=== PATIENT | female | born 1965 | race Caucasian/White ===

== ENCOUNTER 2018-01-02 07:04 | Emergency (ER) | payer BC ==
--- NOTE | 2018-01-02 07:21 | UC ---
Respiratory Complaint HPI - HPI Summary HPI Summary: 52 year old female with cough. Having increased cough and some wheeze. Has asthma. last exac was 4 years ago. no fever today. coughing all night. no sleep. fatigue present. no SOB. No CP. has some rib pain from coughing when it is aggressive. trying to be better about asthma meds like symbicort but previously not using routinely. no myalgias. kids at school have been sick - History of Current Complaint Stated Complaint: COUGH Time Seen by Provider: 01/02/18 07:19 Hx Obtained From: Patient Hx Last Menstrual Period: 2013 ?: No Onset/Duration: Gradual Onset Timing: Constant Severity Currently: Moderate Character: Cough: Nonproductive Alleviating Factors: Nothing Associated Signs And Symptoms: Positive: Wheezing, Nasal Congestion, Sinus Discomfort - Allergies/Home Medications Allergies/Adverse Reactions: Allergies Allergy/AdvReac Type Severity Reaction Status Date / Time MS Latex [Latex] Allergy Severe Rash Verified 01/02/18 07:13 ENVIROMENTAL Allergy Unknown Uncoded 01/02/18 07:13 Reaction Details Home Medications: Home Medications Ibuprofen TAB* [Motrin TAB* 800 MG] 400 mg PO TID PRN 01/02/18 [History Confirmed 01/02/18] Ms [place] Albuterol 1 dose INH ONCE PRN 01/02/18 [History Confirmed 01/02/18] PMH/Surg Hx/FS Hx/Imm Hx Previously Healthy: Yes - Surgical History Surgical History: None - Family History Known Family History: Positive: Diabetes - father Negative: Cardiac Disease, Hypertension - Social History Occupation: Employed Full-time - teacher Lives: With Family Alcohol Use: Rare Substance Use Type: None Smoking Status (MU): Former Smoker Type: Cigarettes When Did the Patient Quit Smoking/Using Tobacco: 30 YEARS AGO Review of Systems Constitutional: Fever, Fatigue ENT: Nasal Discharge, Sinus Congestion Respiratory: Cough Neurological: Headache Is Patient Immunocompromised?: No All Other Systems Reviewed And Are Negative: Yes Physical Exam Triage Information Reviewed: Yes Appearance: Well-Appearing, No Pain Distress, Well-Nourished Vital Signs Reviewed: Yes Eye Exam: Normal ENT Exam: Normal ENT: Positive: Pharynx normal, Nasal drainage, TM dull Dental Exam: Normal Neck exam: Normal Neck: Positive: 1 Respiratory Exam: Normal Respiratory: Positive: Chest non-tender, Lungs clear, Normal breath sounds, No respiratory distress, No accessory muscle use Cardiovascular Exam: Normal Musculoskeletal Exam: Normal Neurological Exam: Normal Psychological Exam: Normal Skin Exam: Normal Respiratory Course/Dx - Course Course Of Treatment: treat as URI with mild worsened asthma sx. she already has at home albuterol inhaler and neb and symbicort and will use as directed. declined medrol. RTO if any concerns - Differential Dx/Diagnosis Differential Diagnosis/HQI/PQRI: Bronchitis, Lower Resp Infection, Sinusitis Provider Diagnoses: URI Discharge - Discharge Plan Condition: Good Disposition: HOME Prescriptions: Benzonatate [Benzonatate 200 MG] 200 mg PO TID #20 cap Patient Education Materials: Upper Respiratory Infection (ED) Forms: *Work Release Referrals: Ritchie Jalloh MD [Primary Care Provider] - 4 Days (if your symptoms are not resolving )
[2018-01-02 07:24] VITALS: BP 132/83
== END 2018-01-02 07:44 | disposition home or self-care (01) ==
LOC: UCCORT 07:04
DX: J06.9 Acute upper respiratory infection, unspecified (principal); Z87.891 Personal history of nicotine dependence
CPT/HCPCS: 99212; G0463

== ENCOUNTER 2019-05-09 19:52 | Emergency (ER) | payer BC ==
[2019-05-09 20:08] VITALS: BP 127/83
[2019-05-09] MEDS ORDERED: Amoxicillin/Clavulanate TAB* 875 MG PO ONE (20:21)
--- NOTE | 2019-05-09 20:23 | UC ---
Throat Pain/Nasal [place] HPI - HPI Summary HPI Summary: 54-year-old female comes in with a chief complaint of upper respiratory tract infection symptoms for 6-7 days. She's been having rhinorrhea cough chest congestion fevers chills. She has had fevers the last one was last evening. She's had the occasional wheeze which her albuterol and he'll inhaler does help. Has fatigue and sinus pressure. - History of Current Complaint Chief Complaint: UCGeneralIllness Stated Complaint: SINUS PAIN Time Seen by Provider: 05/09/19 20:03 Hx Last Menstrual Period: 2013 Pain Intensity: 4 - Allergies/Home Medications Allergies/Adverse Reactions: Allergies Allergy/AdvReac Type Severity Reaction Status Date / Time latex Allergy Rash Verified 05/09/19 20:19 ENVIROMENTAL Allergy Unknown Uncoded 05/09/19 20:08 Reaction Details PMH/Surg Hx/FS Hx/Imm Hx Previously Healthy: Yes Respiratory History: COPD - Surgical History Surgical History: None - Family History Known Family History: Positive: Diabetes - father Negative: Cardiac Disease, Hypertension - Social History Alcohol Use: Occasionally Substance Use Type: None Smoking Status (MU): Former Smoker Type: Cigarettes When Did the Patient Quit Smoking/Using Tobacco: 30 YEARS AGO Review of Systems All Other Systems Reviewed And Are Negative: Yes Constitutional: Positive: Fever, Fatigue Skin: Positive: Negative Eyes: Positive: Negative ENT: Positive: Nasal Discharge, Sinus Congestion, Sinus Pain/Tenderness Respiratory: Positive: Cough, Other - see hpi Cardiovascular: Positive: Negative Gastrointestinal: Positive: Negative Motor: Positive: Negative Neurovascular: Positive: Negative Musculoskeletal: Positive: Negative Neurological: Positive: Negative Psychological: Positive: Negative Is Patient Immunocompromised?: No Physical Exam Triage Information Reviewed: Yes Appearance: No Pain Distress, Well-Nourished, Ill-Appearing - mild Vital Signs: Initial Vital Signs Temp 97.7 F 05/09/19 20:04 Pulse 78 05/09/19 20:04 Resp 16 05/09/19 20:04 BP 127/83 05/09/19 20:04 Pulse Ox 99 05/09/19 20:04 Vital Signs Reviewed: Yes Eye Exam: Normal Eyes: Positive: Conjunctiva Clear ENT: Positive: Pharyngeal erythema, Nasal congestion, Nasal drainage, TMs normal Neck: Positive: Supple Respiratory: Positive: No respiratory distress, No accessory muscle use, Wheezing - rare Cardiovascular: Positive: RRR Musculoskeletal: Positive: Strength Intact, ROM Intact Neurological Exam: Normal Neurological: Positive: Alert, Muscle Tone Normal Psychological Exam: Normal Psychological: Positive: Age Appropriate Behavior Skin Exam: Normal Throat Pain/Nasal Course/Dx - Course Course Of Treatment: DISCUSSED VIRAL VERSES BACTERIAL INFECTION AND THE ROLE OF ANTIBIOTICS. THE PATIENT PREFERS TO BE ON ANTIBIOTICS AT THIS TIME. - Differential Dx/Diagnosis Provider Diagnosis: Sinusitis, COPD (chronic obstructive pulmonary disease) Discharge - Sign-Out/Discharge Documenting (check all that apply): Patient Departure All imaging exams completed and their final reports reviewed: No Studies - Discharge Plan Condition: Stable Disposition: HOME Prescriptions: Amoxicillin/Clavulanate TAB* [Augmentin TAB 875*] 875 mg PO BID #18 tab predniSONE TAB* [Deltasone 20 MG TAB*] 40 mg PO DAILY #10 tab Patient Education Materials: Sinusitis (ED), COPD (Chronic Obstructive Pulmonary Disease) (ED) Referrals: Ritchie Jalloh MD [Primary Care Provider] - Additional Instructions: FOLLOW UP WITH YOUR DOCTOR IF NOT COMPLETELY IMPROVED. GET RECHECKED SOONER IF YOUR CONDITION WORSENS OR ANY QUESTIONS OR CONCERNS. - Billing Disposition and Condition Condition: STABLE Disposition: Home
== END 2019-05-09 20:39 | disposition home or self-care (01) ==
LOC: UCCORT 19:52
DX: J32.9 Chronic sinusitis, unspecified (principal); J44.9 Chronic obstructive pulmonary disease, unspecified; Z87.891 Personal history of nicotine dependence
CPT/HCPCS: 99212; A9270-GY; G0463